=== PATIENT | male | born 1990 ===

== ENCOUNTER 2018-05-05 14:33 | Outpatient (CLI) | payer OTHER ==
[~2018-05-05 14:33] MED LIST: GABAPENTIN300 MG PO; NABUMETONE750 MG PO; NEURONTIN800 MG PO; TIZANIDINE HCL4 MG PO; TORADOL60 MG IM; ULTRACET; ULTRACET PO; VOLTAREM PO; ZANAFLEX4 M1 PO
== END 2018-05-05 14:37 | disposition home or self-care (01) ==
LOC: RAD 14:33
DX: M54.6 Pain in thoracic spine (principal)